=== PATIENT | female | born 1980 | race Caucasian/White ===

== ENCOUNTER 2017-10-15 10:38 | Day surgery (SDC) | payer OTHER ==
[~2017-10-15 10:38] MED LIST: Lactated Ringers 1,000 ML IV SCH
[2017-10-15] MEDS ORDERED: fentaNYL 100 MCG/2 ML SDV ONE (11:33)
[2017-10-15] MEDS ORDERED: Lidocaine 2% 5 ML SDV ONE (11:46)
[2017-10-15] MEDS ORDERED: Propofol 200 MG/20 ML SDV ONE ×2 (11:47→12:22)
[2017-10-15] MEDS ORDERED: Midazolam 1 MG/ML 2 ML SDV ONE (11:47)
--- NOTE | 2017-10-15 12:04 | PCM.PREANE ---
Preanesthetic Assessment - Anesthesia/Transfusion/Family Hx Anesthesia History: Prior Anesthesia Without Reaction (pt states that either wakes up emotional or combative, but most recently it was after the of her sister) Other Type of Anesthesia Reaction Comment: "I wake up emotional and my body temperature drops" Family History of Anesthesia Reaction: No Transfusion History: No Prior Transfusion(s) Intubation History: Unknown - Review of Systems General: No Symptoms Pulmonary: No Symptoms Cardiovascular: No Symptoms Gastrointestinal: Nausea (relates nausea to liquid diet over last 2 weeks) Neurological: No Symptoms Other: Reports: None, Anxiety (requests something for anxiety while she waits) - Physical Assessment NPO Status Date: 10/15/17 NPO Status Time: 00:00 O2 Sat by Pulse Oximetry: 98 Respiratory Rate: 16 Vital Signs: Last Vital Signs Temp 97.3 F 10/15/17 10:56 Pulse 92 10/15/17 10:56 Resp 16 10/15/17 10:56 BP 116/61 10/15/17 10:56 Pulse Ox 98 10/15/17 10:56 Height: 5 ft 6 in Weight: 187 lb ASA Class: 2 Mental Status: Alert & Oriented x3 Airway Class: Mallampati = 2 Dentition: Reports: Normal Dentition Thyro-Mental Finger Breadths: 4 Mouth Opening Finger Breadths: 3 ROM/Head Extension: Full Lungs: Clear to Auscultation, Normal Respiratory Effort Cardiovascular: Regular Rate, Regular Rhythm - Lab Values: Laboratory Last Values Urine HCG, Qual NEGATIVE (NEGATIVE) 10/15/17 10:44 - Allergies Allergies/Adverse Reactions: Allergies Allergy/AdvReac Type Severity Reaction Status Date / Time No Known Allergies Allergy Verified 10/09/17 09:10 - Blood Blood Available: No Product(s) Available: None - Anesthesia Plan Free Text/Narrative:: MAC Pre-Op Medication Ordered: Anxiolytic (2mg Versed) - Acknowledgements Anesthesia Type Planned: MAC Pt an Appropriate Candidate for the Planned Anesthesia: Yes Alternatives and Risks of Anesthesia Discussed w Pt/Guardian: Yes Pt/Guardian Understands and Agrees with Anesthesia Plan: Yes PreAnesthesia Questionnaire HEENT History: Reports: Other (See Below) Other HEENT History: wears glasses/contacts Gastrointestinal History: Reports: Chronic Diarrhea Genitourinary History: Reports: None Musculoskeletal History: Reports: Arthritis Psychiatric History: Reports: Anxiety - Past Surgical History Head Surgeries/Procedures: Reports: None GI Surgical History: Reports: Appendectomy Female Surgical History: Reports: Section, Tubal Ligation Other Female Surgeries/Procedures: c/section x3, tubal ligation, and nova sure procedure - SUBSTANCE USE Smoking Status *Q: Current Every Day Smoker (quit using cigarettes 4-5 years ago , but does smoke vapor cigarettes currently) Tobacco Use Within Last Twelve Months: Smokeless Tobacco Recreational Drug Use History: No - HOME MEDS Home Medications: Home Meds . [No Known Home Meds] 10/09/17 [History] - CURRENT (IN HOUSE) MEDS Current Meds: Current Medications Lactated Ringer's (Ringers, Lactated) 1,000 mls @ 125 mls/hr IV ASDIRECTED DANITA Last Admin: 10/15/17 11:03 Dose: 125 mls/hr Discontinued Medications Fentanyl (Sublimaze) Confirm Administered Dose 100 mcg .ROUTE .STK-MED ONE Stop: 10/15/17 11:34 Lidocaine (Xylocaine-Mpf 2%) Confirm Administered Dose 10 ml .ROUTE .STK-MED ONE Stop: 10/15/17 11:47 Midazolam HCl (Versed 1 Mg/Ml) Confirm Administered Dose 2 mg .ROUTE .STK-MED ONE Stop: 10/15/17 11:48 Propofol (Diprivan 20 Ml) Confirm Administered Dose 400 mg .ROUTE .STK-MED ONE Stop: 10/15/17 11:48
--- NOTE | 2017-10-15 13:35 | PCM.POSTAN ---
POST ANESTHESIA ASSESSMENT - MENTAL STATUS Mental Status: Alert, Oriented - RESPIRATORY Respiratory Status: Respiratory Rate WNL, Airway Patent, O2 Saturation Stable - CARDIOVASCULAR CV Status: Pulse Rate WNL, Blood Pressure Stable - GASTROINTESTINAL GI Status: No Symptoms - PAIN Pain Score: 0 - POST OP HYDRATION Hydration Status: Adequate & Stable
--- NOTE | 2017-10-15 13:40 | PCM.OPNOTE ---
- General Post-Op/Procedure Note Date of Surgery/Procedure: 10/15/17 Operative Procedure(s): colonoscopy w snare polypectomy and tattoo; egd w bx Findings: see dict [id number] Pre Op Diagnosis: BRBPR and abd pain Post-Op Diagnosis: BRBPR and abd pain Anesthesia Technique: Moderate Sedation Primary Surgeon: Dominguez Sandoval Pathology: ped polyp at 20 cm, tattooed Complications: None Condition: Good
--- NOTE | 2017-10-15 14:07 | PCM48HPAN ---
Post Anesthesia Note - EVALUATION WITHIN 48HRS OF ANESTHETIC Vital Signs in Normal Range: Yes Patient Participated in Evaluation: Yes Respiratory Function Stable: Yes Airway Patent: Yes Cardiovascular Function Stable: Yes Hydration Status Stable: Yes Pain Control Satisfactory: Yes Nausea and Vomiting Control Satisfactory: Yes Mental Status Recovered: Yes
--- NOTE | 2017-10-15 21:30 | OR ---
SURGEON: Dominguez Sandoval MD DATE OF PROCEDURE: 10/15/2017 PREOPERATIVE DIAGNOSIS: Abdominal pain and bright red blood per rectum. POSTOPERATIVE DIAGNOSIS: 1. Gastroesophageal reflux disease (EGD). 2. Large colon polyp (colonoscopy). PROCEDURE PERFORMED: 1. EGD with biopsy. 2. Colonoscopy with snare polypectomy. DESCRIPTION OF PROCEDURE: 1. EGD with biopsy. EGD: The patient was taken to the endoscopy room, and with the AGR[employer] SALES REPRESENTATIVE, Diprivan was administered. A well-lubricated EGD scope was gently inserted through the oropharynx, down the esophagus, passing through the gastroesophageal junction, into the stomach. The mucosa was examined upon the passage. Any etiology will be noted. Once in the stomach, we continued to advance to the distal antrum, passed through the pylorus into the second portion of the duodenum. Again, the mucosa was examined for any abnormality and etiology. The scope was then retrieved back to the stomach and then retroflexed to look at the fundus of the stomach. If a biopsy was indicated, we will biopsy the antrum, body, and gastroesophageal junction. The air will be sucked out while the scope is retrieved to reduce the patient's discomfort. The patient tolerated the procedure well. There were no intraoperative complications. Dr. Sandoval was present through the whole procedure. Prior to surgery, a time-out had been called, the patient identified, procedure identified and antibiotic administered. 1. Colonoscopy with snare polypectomy. The patient was taken to the endoscopy room. A time out was called, patient identified, and procedure identified. Diprivan was then administrated. Patient went from awake to sleep, hearing doctor talking or door closing is normal. Perineum inspection and digital examination were then performed. A well- lubricated colonoscope was gently inserted through the rectum, advanced past the rectosigmoid junction, the descending colon, splenic flexure, transverse colon, hepatic flexure, ascending colon, arrived to the cecum. Cecum was identified as dictated in the finding. Then the scope was carefully withdrawn while attention was paid to the mucosal surface for any abnormality. Air will be sucked out during the scope withdrawal. At the rectum, retroflexed to examine any rectal diseases, fistula or hemorrhoids. During mucosal examination, abnormality or polyp encountered. Using snare equipment, the abnormality or the polyp was then snared off using electrocautery. The Patient tolerated procedure well. There were no intraoperative complications, and Dr. Sandoval was present throughout the whole procedure. FINDINGS: EGD FINDINGS: 1. The patient is easily sedated with A[employer] SALES REPRESENTATIVE and Diprivan. The patient is soundly snoring. 2. Proximal oropharynx and proximal esophagus are free of disease. No inflammation, stricture, ulceration, polyp. Distal esophagus, the GE junction at 40, shows a very minimal, salmon color change consistent with mild to no acid reflux. Stomach rugae is normal in appearance. There is no blood, ulcer, bile, food. There is a little bit of water. Antrum is normal in appearance. Mildly inflamed. Duodenum was grossly normal. Scope retrieved back to look at the fundus of stomach and there is no hiatal hernia. Biopsy done at antrum, body, GE junction at 40, and sucked out the air while scope pulling out. COLONOSCOPY FINDINGS: 1. The patient is easily sedated with A[employer] SALES REPRESENTATIVE and Diprivan. The patient is soundly snoring. 2. Bowel prep is marginally acceptable, solid stool chunks throughout the colon. A big chunk suggests the patient probably had bowel prep, may have had solid food in between. There is solid stool throughout the colon sporadically, able to move with irrigation but consider to compromise study, and this is a compromised study because of bowel prep. 3. Colon is rather straight forward. Cecum indicated by ileocecal fold, one- to-one indentation, light emittance, and appendiceal orifice. Mucosa examined upon scope pulling out. The patient does not have diverticulosis, has a very large polyp, close to the bowel 18 to 19 mm chordee, foul- looking pedunculate and removed by snare polypectomy in an attempt to get to the lower part of the stalk, tried several time and polyp was located at 20 cm when the scope go in and when the scope come out, and has been inked, inject, and snare polypectomy removed and sent for pathology. We will discuss the management of this large polyp when the pathology come back. The patient has mild internal hemorrhoids, no external hemorrhoids. The benefit from repeat colonoscopy depends on pathology of the polyp and depends on clinical situation. The patient may benefit from saline elevation polyp removal if it has dysplasia or some other pathology, we will address in the office. MARY / GERARD /[id number] MADDIE
== END 2017-10-15 14:28 | disposition home or self-care (01) ==
LOC: MW.SDS 10:38
PROVIDERS: ATTEND Surgery
DX: K29.00 Acute gastritis without bleeding (principal); K29.50 Unspecified chronic gastritis without bleeding; K20.8 Other esophagitis; D12.6 Benign neoplasm of colon, unspecified; K64.8 Other hemorrhoids; K52.9 Noninfective gastroenteritis and colitis, unspecified; M19.90 Unspecified osteoarthritis, unspecified site; F41.9 Anxiety disorder, unspecified; F17.290 Nicotine dependence, other tobacco product, uncomplicated; Z80.0 Family history of malignant neoplasm of digestive organs; Z98.51 Tubal ligation status; Z90.49 Acquired absence of other specified parts of digestive tract; Z98.890 Other specified postprocedural states
CPT/HCPCS: 43239; 45385; 81025; J2250; J3010; J7120; 00740; 88305; 88312; J2704